=== PATIENT | female | born 1990 ===

== ENCOUNTER 2024-06-22 12:36 | Emergency (ER) | payer SELFPAY ==
[2024-06-22 12:39] VITALS: BP 149/93; PULSE 72; RESP 16; TEMP 36.6; O2SAT 100
--- NOTE | 2024-06-22 19:49 | PC.NURSE ---
Patient called for 2nd time to triage area, no response.
== END 2024-06-22 20:13 | disposition left against medical advice (07) ==
LOC: ANHED 19:56
PROVIDERS: PCP Family Medicine
DX: M54.50 Low back pain, unspecified (principal)
CPT/HCPCS: 99199